=== PATIENT | female | born 1960 | race Caucasian/White ===

== ENCOUNTER 2017-09-21 22:21 | Emergency (ER) | payer BC ==
[~2017-09-21] VITALS: Ht 149.9 cm; Wt 49.0 kg
[2017-09-21 22:24] VITALS: BP 153/51
--- NOTE | 2017-09-21 22:24 | NUR ---
BIBSELF C/O LOWER BACK PAIN AND BURNING PAIN ON LEFT THIGH X 1 DAY. PT AMBULATED TO BED WITH STEADY GAIT. VS WNL. AWAITING MD ORDERS.
== END 2017-09-22 01:38 | disposition home or self-care (01) ==
LOC: ER 22:23
DX: M79.2 Neuralgia and neuritis, unspecified (principal); I10 Essential (primary) hypertension; Z90.89 Acquired absence of other organs; Z98.890 Other specified postprocedural states
CPT/HCPCS: 99283; A4606; Z7610